=== PATIENT | male | born 1980 | race Caucasian/White ===

== ENCOUNTER 2022-06-30 12:08 | Inpatient (IN) | payer OTHER ==
[2022-06-30 13:36] VITALS: BMI 27.4
[2022-06-30] MEDS ORDERED: LOPERAMIDE HCL 2 MG CAPSULE PO PRN (15:29)
[2022-06-30] MEDS ORDERED: ACETAMINOPHEN 325 MG TABLET (FP) PO PRN (15:29)
[2022-06-30] MEDS ORDERED: BENZOCAINE/MENTHOL (CHLORASEPTIC ) LOZENGE MM PRN (15:29)
[2022-06-30] MEDS ORDERED: MAG HYDROX/AL HYDROX/SIMETH 30 ML UNIT-DOSE CUP PO PRN (15:29)
[2022-06-30] MEDS ORDERED: hydrOXYzine PAMOATE 25 MG CAPSULE (FP) PO PRN (15:29)
[2022-06-30] MEDS ORDERED: guaiFENesin 200 MG/10 ML 10 ML UNIT-DOSE CUPS PO PRN (15:29)
[2022-06-30] MEDS ORDERED: P-EPHED 60MG/TRIPROLIDI 2.5MG TABLET PO PRN (15:29)
[2022-06-30] MEDS ORDERED: MAGNESIUM HYDROX 2400MG/30ML ORAL SUSPENSION 30 ML CUP PO PRN (15:29)
[2022-06-30] MEDS ORDERED: POLYETHYLENE GLYCOL (HEALTHYLAX) 3350 17 GM PACKET PO PRN (15:29)
[2022-06-30] MEDS ORDERED: NICOTINE 10 MG CARTRIDGE (INHALER) IH PRN (15:29)
[2022-06-30] MEDS ORDERED: IBUPROFEN 400 MG TABLET (FP) PO PRN (15:29)
[2022-06-30] MEDS: NICOTINE 7 MG/24 HOURS TOPICAL PATCH TD SCH (20:55)
[2022-06-30] MEDS: PRENATAL VITAMINS W/ FOLIC ACID TABLET (FP) PO SCH (20:55)
[2022-06-30] MEDS ORDERED: TUBERCULIN PPD 5 TU/0.1ML VIAL ID ONE (21:47)
[2022-06-30] MEDS: THIAMINE HCL 100 MG TABLET (FP) PO SCH (21:48)
[2022-06-30] MEDS: MELATONIN 5 MG TABLETS PO SCH (21:48)
[2022-07-01 09:39] LABS: HEMATOCRIT 40.5 % (35.4-49); HEMOGLOBIN 13.3 GM/dL (11.7-16.9); MCHC 32.8 g/dl (32.0-35.9); MEAN CELL VOLUME 91.6 fl (80-96); MEAN PLT VOLUME 7.8 fl (7.5-11.1); PLATELET COUNT 279 10^3/uL (134-434); RBC 4.42 M/mm3 (4.00-5.60); RDW 12.9 % (11.9-15.9); WHITE BLOOD COUNT 7.4 K/mm3 (4.0-10.0)
[2022-07-01 09:40] LABS: URINE APPEARANCE CLEAR; URINE BILIRUBIN NEGATIVE (NEGATIVE); URINE COLOR YELLOW; URINE GLUCOSE (UA) NEGATIVE (NEGATIVE); URINE KETONE NEGATIVE (NEGATIVE); URINE LEUK ESTERASE NEGATIVE (NEGATIVE); URINE NITRITE NEGATIVE (NEGATIVE); URINE PROTEIN NEGATIVE (NEGATIVE)
[2022-07-01 10:01] LABS: CALCIUM 9.3 mg/dL (8.5-10.1)
[2022-07-01 10:02] LABS: ALBUMIN 3.5 g/dl (3.4-5.0)
[2022-07-01 10:05] LABS: CREATININE 0.8 mg/dL (0.55-1.3)
[2022-07-01 10:06] LABS: TOT PROT 6.6 g/dl (6.4-8.2)
[2022-07-01 10:07] LABS: BILIRUBIN,TOTAL 0.5 mg/dL (0.2-1)
[2022-07-01] MEDS: NICOTINE 7 MG/24 HOURS TOPICAL PATCH TD SCH (10:33)
[2022-07-01] MEDS: PRENATAL VITAMINS W/ FOLIC ACID TABLET (FP) PO SCH (10:33)
[2022-07-01 11:22] LABS: SYPHILIS W/ RPR CONF NON-REACTIVE (NONREACTIVE)
[2022-07-01] MEDS ORDERED: NICOTINE 7 MG/24 HOURS TOPICAL PATCH TD PRN (11:38)
[2022-07-01] MEDS ORDERED: PRENATAL VITAMINS W/ FOLIC ACID TABLET (FP) PO PRN (11:40)
[2022-07-01] MEDS: OLANZapine 10 MG TABLET PO SCH (21:26)
[2022-07-01] MEDS: MELATONIN 5 MG TABLETS PO SCH (21:26)
[2022-07-01] MEDS: THIAMINE HCL 100 MG TABLET (FP) PO SCH (21:26)
[2022-07-02] MEDS: OLANZapine 10 MG TABLET PO SCH (21:25)
[2022-07-02] MEDS: THIAMINE HCL 100 MG TABLET (FP) PO SCH (21:25)
[2022-07-02] MEDS: MELATONIN 5 MG TABLETS PO SCH (21:25)
[2022-07-03] MEDS: MELATONIN 5 MG TABLETS PO SCH (21:33)
[2022-07-03] MEDS: OLANZapine 10 MG TABLET PO SCH (21:33)
[2022-07-03] MEDS: THIAMINE HCL 100 MG TABLET (FP) PO SCH (21:34)
[2022-07-04] MEDS: MELATONIN 5 MG TABLETS PO SCH (21:38)
[2022-07-04] MEDS: OLANZapine 10 MG TABLET PO SCH (21:38)
[2022-07-04] MEDS: THIAMINE HCL 100 MG TABLET (FP) PO SCH (21:38)
[2022-07-05] MEDS: OLANZapine 10 MG TABLET PO SCH (21:32)
[2022-07-05] MEDS: MELATONIN 5 MG TABLETS PO SCH (21:32)
[2022-07-05] MEDS: THIAMINE HCL 100 MG TABLET (FP) PO SCH (21:32)
[2022-07-06] MEDS: THIAMINE HCL 100 MG TABLET (FP) PO SCH (21:11)
[2022-07-06] MEDS: MELATONIN 5 MG TABLETS PO SCH (21:11)
[2022-07-06] MEDS: OLANZapine 10 MG TABLET PO SCH (21:11)
[2022-07-07] MEDS: THIAMINE HCL 100 MG TABLET (FP) PO SCH (21:11)
[2022-07-07] MEDS: MELATONIN 5 MG TABLETS PO SCH (21:11)
[2022-07-07] MEDS: OLANZapine 10 MG TABLET PO SCH (21:11)
[2022-07-08] MEDS: OLANZapine 10 MG TABLET PO SCH (21:10)
[2022-07-08] MEDS: THIAMINE HCL 100 MG TABLET (FP) PO SCH (21:10)
[2022-07-08] MEDS: MELATONIN 5 MG TABLETS PO SCH (21:10)
[2022-07-09] MEDS: MELATONIN 5 MG TABLETS PO SCH (21:11)
[2022-07-09] MEDS: OLANZapine 10 MG TABLET PO SCH (21:11)
[2022-07-09] MEDS: THIAMINE HCL 100 MG TABLET (FP) PO SCH (21:11)
[2022-07-10] MEDS: THIAMINE HCL 100 MG TABLET (FP) PO SCH (21:23)
[2022-07-10] MEDS: MELATONIN 5 MG TABLETS PO SCH (21:23)
[2022-07-10] MEDS: OLANZapine 10 MG TABLET PO SCH (21:23)
[2022-07-11] MEDS: OLANZapine 10 MG TABLET PO SCH (21:37)
[2022-07-11] MEDS: THIAMINE HCL 100 MG TABLET (FP) PO SCH (21:37)
[2022-07-11] MEDS: MELATONIN 5 MG TABLETS PO SCH (21:37)
[2022-07-12] MEDS: OLANZapine 10 MG TABLET PO SCH (21:51)
[2022-07-12] MEDS: MELATONIN 5 MG TABLETS PO SCH (21:51)
[2022-07-12] MEDS: THIAMINE HCL 100 MG TABLET (FP) PO SCH (21:51)
[2022-07-13 07:02] VITALS: BP 138/91; PULSE 79; RESP 18; TEMP 98.2
== END 2022-07-13 16:45 | disposition home or self-care (01) | DRG 772 ==
LOC: YASAS 12:08 → Y3W 19:39
PROVIDERS: ADMIT Allergy & Immunology; ATTEND Psychiatry & Neurology Pain Medicine
PROC: HZ42ZZZ Group Counseling for Substance Abuse Treatment, Cognitive-Behavioral (ICD-10-PCS; principal; 2022-06-30)
DX: F10.20 Alcohol dependence, uncomplicated (principal); F14.20 Cocaine dependence, uncomplicated; F12.20 Cannabis dependence, uncomplicated; F17.210 Nicotine dependence, cigarettes, uncomplicated; F31.9 Bipolar disorder, unspecified; F20.9 Schizophrenia, unspecified; F19.280 Other psychoactive substance dependence with psychoactive substance-induced anxiety disorder; F19.282 Other psychoactive substance dependence with psychoactive substance-induced sleep disorder; F43.10 Post-traumatic stress disorder, unspecified; Z20.822 Contact with and (suspected) exposure to COVID-19; Z86.73 Personal history of transient ischemic attack (TIA), and cerebral infarction without residual deficits
CPT/HCPCS: 36415; 80053; 81003; 82140; 85027; 86780; 86803; 93005; 93010; C9803-CS; U0003; U0005

== ENCOUNTER 2024-10-22 13:57 | Inpatient (IN) | payer OTHER ==
[2024-10-22 14:27] VITALS: BMI 28.1
[2024-10-22] MEDS ORDERED: POLYETHYLENE GLYCOL (HEALTHYLAX) 3350 17 GM PACKET PO PRN (15:14)
[2024-10-22] MEDS ORDERED: ACETAMINOPHEN 325 MG TABLET (FP) PO PRN (15:14)
[2024-10-22] MEDS ORDERED: MAGNESIUM HYDROX 2400MG/30ML ORAL SUSPENSION 30 ML CUP PO PRN (15:14)
[2024-10-22] MEDS ORDERED: NICOTINE POLACRILEX 2 MG LOZENGE BC PRN (15:14)
[2024-10-22] MEDS ORDERED: guaiFENesin 600 MG TABLET.ER (FP) PO PRN (15:14)
[2024-10-22] MEDS ORDERED: hydrOXYzine PAMOATE 25 MG CAPSULE (FP) PO PRN (15:14)
[2024-10-22] MEDS ORDERED: BENZONATATE 200 MG CAPSULE PO PRN (15:14)
[2024-10-22] MEDS ORDERED: LOPERAMIDE HCL 2 MG CAPSULE PO PRN (15:14)
[2024-10-22] MEDS ORDERED: IBUPROFEN 400 MG TABLET (FP) PO PRN (15:14)
[2024-10-22] MEDS ORDERED: MAG HYDROX/AL HYDROX/SIMETH 30 ML UNIT-DOSE CUP PO PRN (15:14)
[2024-10-22] MEDS ORDERED: BENZOCAINE/MENTHOL (CHLORASEPTIC ) LOZENGE MM PRN (15:14)
[2024-10-22] MEDS ORDERED: IBUPROFEN 600 MG TABLET (FP) PO PRN (15:14)
[2024-10-22] MEDS ORDERED: NICOTINE POLACRILEX 2 MG GUM BUC PRN (15:14)
[2024-10-22] MEDS ORDERED: NALOXONE (NARCAN) HCL 4 MG/0.1 ML SPRAY NS PRN (15:14)
[2024-10-22] MEDS ORDERED: BISMUTH SUBSALICYLATE 524 MG/30 ML PO PRN (15:14)
[2024-10-22] MEDS ORDERED: ONDANSETRON *ODT* 4 MG TABLET SL PRN (15:14)
[2024-10-22] MEDS ORDERED: DICYCLOMINE HCL 10 MG CAPSULE PO PRN (15:14)
[2024-10-22] MEDS: MELATONIN 5 MG TABLETS PO SCH (21:43)
[2024-10-22] MEDS: THIAMINE 100 MG TABLET PO SCH (21:43)
[2024-10-23] MEDS: PRENATAL VITAMINS W/ FOLIC ACID TABLET (FP) PO SCH (10:25)
[2024-10-23] MEDS: SERTRALINE HCL 50 MG TABLET (FP) PO SCH (10:25)
[2024-10-23] MEDS: risperiDONE 2 MG TABLET PO SCH (10:26)
[2024-10-23] MEDS: LIDOCAINE 5% TOPICAL PATCH TP SCH (10:27)
[2024-10-23] MEDS: NALTREXONE HCL 50 MG TABLET PO ONE (14:23)
[2024-10-23 14:52] LABS: HEMATOCRIT 37.6 % (40.1-51.0); HEMOGLOBIN 11.5 g/dL (13.7-17.5); MCHC 30.6 g/dl (32.3-36.5); MEAN CELL VOLUME 88.3 fl (79.0-92.2); MEAN PLT VOLUME 10.3 fl (9.4-12.4); PLATELET COUNT # 250 x10^3/uL (163-337); RDW 13.9 % (12.1-15.9)
[2024-10-23 14:59] LABS: CHLORIDE 108 mmol/L (98-107); POTASSIUM 3.8 mmol/L (3.5-5.1); SODIUM 143 mmol/L (136-145)
[2024-10-23 15:01] LABS: CALCIUM 8.6 mg/dL (8.5-10.1)
[2024-10-23 15:03] LABS: ANION GAP 7 mmol/L (4-13); BLOOD UREA NITROGEN 6.1 mg/dL (7-18); CO2 28 mmol/L (21-32); GLUCOSE,RANDOM 73 mg/dL (74-106)
[2024-10-23 15:05] LABS: CREATININE 0.6 mg/dL (0.55-1.3); SGOT/AST 22 U/L (15-37); SGPT/ALT 24 U/L (13-61)
[2024-10-23 15:07] LABS: ALK PHOS 70 U/L (45-117); BILIRUBIN,TOTAL 0.6 mg/dL (0.2-1); TOT PROT 6.5 g/dl (6.4-8.2)
[2024-10-23] MEDS: METHOCARBAMOL 500 MG TABLET PO PRN (22:38)
[2024-10-23] MEDS: DIVALPROEX SODIUM 500 MG TABLET E.C. PO SCH (22:39)
[2024-10-23] MEDS: LIDOCAINE PATCH REMOVAL MC SCH (22:40)
[2024-10-24 09:11] VITALS: BP 125/89; PULSE 90; RESP 17; TEMP 97
[2024-10-24] MEDS: NALTREXONE HCL 50 MG TABLET PO SCH (10:48)
== END 2024-10-24 13:31 | disposition other institution (70) | DRG 774 ==
LOC: YASAS 13:57 → Y3N 15:41
PROVIDERS: ADMIT Neuromusculoskeletal Medicine & OMM; ATTEND Allergy & Immunology
PROC: HZ2ZZZZ Detoxification Services for Substance Abuse Treatment (ICD-10-PCS; principal; 2024-10-22)
DX: F10.20 Alcohol dependence, uncomplicated (principal); F14.20 Cocaine dependence, uncomplicated; F12.20 Cannabis dependence, uncomplicated; F17.210 Nicotine dependence, cigarettes, uncomplicated; F31.9 Bipolar disorder, unspecified; F43.10 Post-traumatic stress disorder, unspecified; M16.12 Unilateral primary osteoarthritis, left hip; Z62.810 Personal history of physical and sexual abuse in childhood; Z86.73 Personal history of transient ischemic attack (TIA), and cerebral infarction without residual deficits; Z59.01 Sheltered homelessness
CPT/HCPCS: 36415; 80053; 80164; 80305; 80307; 85027; 86780; 87811; 93005; 93010

== ENCOUNTER 2024-10-24 13:30 | Inpatient (IN) | payer OTHER ==
[2024-10-24 13:38] VITALS: BP 130/77
[2024-10-24] MEDS ORDERED: guaiFENesin 600 MG TABLET.ER (FP) PO PRN (14:10)
[2024-10-24] MEDS ORDERED: NALOXONE (NARCAN) HCL 4 MG/0.1 ML SPRAY NS PRN (14:10)
[2024-10-24] MEDS ORDERED: LOPERAMIDE HCL 2 MG CAPSULE PO PRN (14:10)
[2024-10-24] MEDS ORDERED: IBUPROFEN 400 MG TABLET (FP) PO PRN (14:10)
[2024-10-24] MEDS ORDERED: POLYETHYLENE GLYCOL (HEALTHYLAX) 3350 17 GM PACKET PO PRN (14:10)
[2024-10-24] MEDS ORDERED: ACETAMINOPHEN 325 MG TABLET (FP) PO PRN (14:10)
[2024-10-24] MEDS ORDERED: hydrOXYzine PAMOATE 25 MG CAPSULE (FP) PO PRN (14:10)
[2024-10-24] MEDS ORDERED: BENZONATATE 200 MG CAPSULE PO PRN (14:10)
[2024-10-24] MEDS ORDERED: NALOXONE HCL 0.4 MG/ML VIAL IVPUSH PRN (14:10)
[2024-10-24] MEDS ORDERED: BENZOCAINE/MENTHOL (CHLORASEPTIC ) LOZENGE MM PRN (14:10)
[2024-10-24] MEDS ORDERED: METHOCARBAMOL 500 MG TABLET PO PRN (14:10)
[2024-10-24] MEDS ORDERED: MAG HYDROX/AL HYDROX/SIMETH 30 ML UNIT-DOSE CUP PO PRN (14:10)
[2024-10-24] MEDS ORDERED: MAGNESIUM HYDROX 2400MG/30ML ORAL SUSPENSION 30 ML CUP PO PRN (14:10)
[2024-10-24] MEDS ORDERED: IBUPROFEN 600 MG TABLET (FP) PO PRN (14:10)
[2024-10-24] MEDS: NALTREXONE HCL 50 MG TABLET PO SCH (15:18)
[2024-10-24] MEDS ORDERED: NICOTINE POLACRILEX 4 MG GUM BUC PRN (16:39)
[2024-10-24] MEDS ORDERED: TUBERCULIN PPD 5 TU/0.1ML VIAL ID ONE (17:21)
[2024-10-24] MEDS: DIVALPROEX SODIUM 500 MG TABLET E.C. PO SCH (21:45)
[2024-10-24] MEDS: MELATONIN 5 MG TABLETS PO SCH (21:45)
[2024-10-24] MEDS: THIAMINE 100 MG TABLET PO SCH (21:45)
[2024-10-24] MEDS ORDERED: MELATONIN 5 MG TABLETS PO SCH (22:00)
[2024-10-25 06:12] VITALS: PULSE 89; RESP 16; TEMP 97.3
[2024-10-25] MEDS ORDERED: risperiDONE 2 MG TABLET PO SCH (10:00)
[2024-10-25] MEDS: NICOTINE 7 MG/24 HOURS TOPICAL PATCH TD SCH (11:19)
[2024-10-25] MEDS: PRENATAL VITAMINS W/ FOLIC ACID TABLET (FP) PO SCH (11:19)
[2024-10-25] MEDS: SERTRALINE HCL 50 MG TABLET (FP) PO SCH (11:20)
[2024-10-25 12:44] LABS: HIV INTERPRETATION NEGATIVE (NEGATIVE)
== END 2024-10-25 20:43 | disposition left against medical advice (07) | DRG 770 ==
LOC: YASAS 13:30 → Y3W 13:31
PROVIDERS: ADMIT Psychiatry & Neurology Pain Medicine; ATTEND Psychiatry & Neurology Pain Medicine
PROC: HZ42ZZZ Group Counseling for Substance Abuse Treatment, Cognitive-Behavioral (ICD-10-PCS; principal; 2024-10-24)
DX: F10.20 Alcohol dependence, uncomplicated (principal); F14.20 Cocaine dependence, uncomplicated; F12.20 Cannabis dependence, uncomplicated; F17.210 Nicotine dependence, cigarettes, uncomplicated; F19.282 Other psychoactive substance dependence with psychoactive substance-induced sleep disorder; F25.9 Schizoaffective disorder, unspecified; Z59.00 Homelessness unspecified
CPT/HCPCS: 36415; 87389